=== PATIENT | female | born 1940 | race Caucasian/White ===

== ENCOUNTER 2016-04-21 15:48 | Inpatient (IN) ==
[2016-04-21 18:42] LABS: Basophils % 0.1 %; Eosinophils # 0.2 K/mcL (0.0-0.6); Eosinophils % 1.7 %; Hematocrit 32.2 % (35.3-44.9); Hemoglobin 10.6 g/dL (11.5-15.4); Immature Granulocytes % 0.8 % (0-4); Lymphocytes # 2.7 K/mcL (0.6-4.6); Lymphocytes % 19.9 %; Mean Corpuscular HGB Conc 32.9 g/dL (31.6-35.5); Mean Corpuscular Hemoglobin 31.5 pg (28.0-33.3); Mean Corpuscular Volume 95.5 fL (83.0-100.0); Mean Platelet Volume 10.6 fL (9.4-12.4); Monocytes # 1.4 K/mcL (0.0-1.3); Monocytes % 10.1 %; Neutrophils # 9.3 K/mcL (1.6-8.9); Platelet Count 232 K/mcL (140-400); Red Blood Count 3.37 M/mcL (3.82-4.97); Red Cell Distribution Width 13.8 % (11.5-14.5); Segmented Neutrophils % 67.4 %
[2016-04-21 18:56] LABS: Alanine Aminotransferase 13 Units/L (0-55); Albumin 2.5 g/dL (3.5-5.0); Albumin/Globulin Ratio 0.7 (1.1-2.2); Alkaline Phosphatase 62 Units/L (38-126); Aspartate Amino Transferase 16 Units/L (5-34); BUN/Creatinine Ratio 11 (6-26); Bilirubin,Total 0.6 mg/dL (0.2-1.2); Blood Urea Nitrogen 12 mg/dL (7-20); Calcium 9.3 mg/dL (8.6-10.8); Carbon Dioxide 19 mEq/L (19-29); Chloride 115 mEq/L (98-109); Globulin 3.8 g/dL (2.4-3.5); Glucose 137 mg/dL (70-99); Osmolality,Calculated 296 (280-300); Potassium 3.6 mEq/L (3.5-4.5); Sodium 142 mEq/L (136-145); Total Protein 6.3 g/dL (6.0-8.3); eGFR For African Americans > 60 (> 60); eGFR For Non-African Americans 51 (> 60)
--- NOTE | 2016-04-21 19:05 | Emergency Department Note ---
Disposition Clinical Impression: Acute exacerbation of chronic obstructive airways disease, Congestive heart failure, Dyspnea, Diabetes, Dyspnea on exertion, Frail elderly, CAD (coronary artery disease), Hypertension, Anemia Disposition: Admitted As Inpatient Referrals: Mindi Tafoya CNP [Primary Care Provider] - Forms: ED Satisfaction Letter General Adult HPI - General Chief complaint: ED Shortness of Breath/Dyspnea Stated complaint: NAUN Time Seen by Provider: 04/21/16 19:02 Source: patient Limitations: no limitations - History of Present Illness HPI Narrative: 75-year-old female with a history of diabetes, COPD, CHF, and coronary artery disease reports to the emergency Department complaining of progressive dyspnea. She reports she is so dyspneic on exertion she can walk about 10 or 20 feet. The patient has had a cough and some chills. There is no history of chest pain and coughing up blood or passing out no leg swelling or pain. She describes orthopnea and the need to sit straight up. There is no history of fall or injury no abdominal pain vomiting or diarrhea no confusion or any trouble moving the arms or legs independently. There is no history of headache neck stiffness or rash. No fevers reported. The patient is also concerned that she may have a urinary tract infection and wants us to check that. The patient does take diuretic medication. He has oxygen at home which she is really only worse at night. 2 L. She has been using her oxygen more during the day and has been progressively symptomatic. There is no history of previous PE or DVT. Onset (ago): day(s) Pain Scale: 0 - Related Data Home Medications Medication Instructions Recorded Confirmed Albuterol Sulfate [Proventil Hfa] 2 puff IH Q6HR PRN 01/10/16 01/10/16 Amlodipine Besylate 5 mg PO DAILY 01/10/16 01/10/16 Buspirone HCl [Buspar] 10 mg PO DAILY 01/10/16 01/10/16 Clopidogrel [Plavix] 75 mg PO DAILY 01/10/16 01/10/16 Famotidine [Heartburn Prevention] 20 mg PO TID 01/10/16 01/10/16 GlipiZIDE [Glipizide Xl] 5 mg PO PRN PRN 01/10/16 01/10/16 Metoclopramide [Reglan] 5 mg PO PRN PRN 01/10/16 01/10/16 Metoprolol [Lopressor] 25 mg PO BID 01/10/16 01/10/16 Pantoprazole Sodium [Protonix] 40 mg PO DAILY 01/10/16 01/10/16 Pravastatin Sodium [Pravachol] 40 mg PO HS 01/10/16 01/10/16 Sitagliptin Phosphate [Januvia] 50 mg PO DAILY 01/10/16 01/10/16 Tiotropium [Spiriva] 18 mcg IH DAILY 01/10/16 01/10/16 TraZODone 50 mg PO HS 01/10/16 01/10/16 Allergies Allergy/AdvReac Type Severity Reaction Status Date / Time Sulfa (Sulfonamide Allergy Vomiting Verified 01/10/16 21:11 Antibiotics) metronidazole [From Flagyl] AdvReac Vomiting Verified 01/10/16 21:11 All systems ED: reviewed and negative except as stated. Past Medical History - Past Medical History Medical history: Reports: CHF, COPD, diabetes, hyperlipidemia, hypertension, myocardial infarction Surgical history: Reports: other Psychiatric history: Reports: depression - Social History Smoking Status: Current every day smoker Smokeless Tobacco Status: No Alcohol use: Reports: none Drug use: Reports: none Physical Exam - General Limitations: no limitations General appearance: alert, in no apparent distress - Head Head exam: atraumatic, normocephalic - Eye Eye exam: Present: normal appearance, PERRL, EOMI - ENT ENT exam: normal exam, normal oropharynx, mucous membranes moist, TM's normal bilaterally, normal external ear exam - Neck Neck exam: Present: normal inspection, full ROM, trachea midline. Absent: tenderness - Chest Chest inspection: Present: symmetric chest wall rise. Absent: tenderness - Respiratory Respiratory exam: Present: prolonged expiratory phase, other (Course breath sounds particularly on the right with poor airflow throughout.). Absent: respiratory distress - Cardiovascular Cardiovascular exam: Present: regular rate, normal rhythm, normal heart sounds - Abdominal Exam Abdominal exam: Present: soft, Non-Tender. Absent: tenderness, distention, guarding, rebound, rigidity, pulsatile mass - Extremities Exam Extremities exam: Present: normal inspection, full ROM, normal capillary refill. Absent: tenderness, pedal edema, joint swelling, calf tenderness - Expanded Lower Extremity Exam Hip/Pelvis exam: Present: full ROM. Absent: tenderness Upper leg exam: Present: full ROM. Absent: tenderness Knee exam: Present: full ROM. Absent: tenderness Lower leg exam: Present: full ROM. Absent: tenderness, Homans' sign Neurovascular/Tendon exam: Absent: motor deficit, sensory deficit, tendon deficit - Back Exam Back exam: Present: normal inspection, full ROM. Absent: tenderness, CVA tenderness (R), CVA tenderness (L), vertebral tenderness - Neurological Exam Neurological exam: Present: alert, oriented X3, CN II-XII intact. Absent: motor sensory deficit - Psychiatric Psychiatric exam: Present: normal affect, normal mood - Skin Skin exam: Present: warm, dry, intact, normal color. Absent: rash, cyanosis, diaphoresis, erythema, pallor, mottled Course Vital Signs Temperature 98.3 F 04/21/16 16:12 Pulse Rate 96 04/21/16 16:12 Respiratory Rate 18 04/21/16 16:12 Blood Pressure 144/76 04/21/16 16:12 O2 Sat by Pulse Oximetry 96 04/21/16 16:12 Temperature 98.3 F 04/21/16 16:12 Pulse Rate 85 04/21/16 20:31 Respiratory Rate 18 04/21/16 20:31 Blood Pressure 156/58 04/21/16 20:31 O2 Sat by Pulse Oximetry 95 04/21/16 20:31 Oxygen Delivery Oxygen Delivery Nasal Cannula Medical Decision Making - [facility] Narrative Medical decision making narrative: The patient appears to have a COPD exacerbation. She has markedly dyspneic even on minimal exertion. She describes being able to ambulate 20 feet or so before becoming severely dyspneic. She does not usually require oxygen in the day and has had to wear oxygen over the last few days. The patient was given a DuoNeb in the ED and her peak flow was only 120. A second DuoNeb was given. Antibiotics and steroids also been ordered. The patient denies any chest pain. She does not appear to be in acute heart failure. Based on her multiple comorbidities including COPD CHF diabetes and CAD with what appears to be significant dyspnea on exertion and an extremely poor peak flow, it appears that she has failed outpatient therapy. I have consulted the hospitalist on- call - Lab Data Result diagrams: 04/21/16 18:20 04/21/16 18:20 Lab Results 04/21/16 04/21/16 04/21/16 Range/Units 18:20 18:20 20:00 WBC 13.7 H (4.3-11.1) K/mcL RBC 3.37 L (3.82-4.97) M/mcL Hgb 10.6 L (11.5-15.4) g/dL Hct 32.2 L (35.3-44.9) % MCV 95.5 (83.0-100.0) fL MCH 31.5 (28.0-33.3) pg MCHC 32.9 (31.6-35.5) g/dL RDW 13.8 (11.5-14.5) % Plt Count 232 (140-400) K/mcL MPV 10.6 (9.4-12.4) fL Immature Gran % 0.8 (0-4) % Seg Neutrophils % 67.4 % Lymphocytes % 19.9 % Monocytes % 10.1 % Eosinophils % 1.7 % Basophils % 0.1 % Neutrophils # 9.3 H (1.6-8.9) K/mcL Lymphocytes # 2.7 (0.6-4.6) K/mcL Monocytes # 1.4 H (0.0-1.3) K/mcL Eosinophils # 0.2 (0.0-0.6) K/mcL Basophils # 0.0 (0.0-0.2) K/mcL Sodium 142 (136-145) mEq/L Potassium 3.6 (3.5-4.5) mEq/L Chloride 115 H (98-109) mEq/L Carbon Dioxide 19 (19-29) mEq/L BUN 12 (7-20) mg/dL Creatinine 1.05 (0.57-1.11) mg/dL Est GFR ( Amer) > 60 (> 60) Est GFR (Non-Af Amer) 51 L (> 60) BUN/Creatinine Ratio 11 (6-26) Glucose 137 H (70-99) mg/dL Calculated Osmolality 296 (280-300) Lactic Acid (0.5-2.2) mmol/L Calcium 9.3 (8.6-10.8) mg/dL Total Bilirubin 0.6 (0.2-1.2) mg/dL AST 16 (5-34) Units/L ALT 13 (0-55) Units/L Alkaline Phosphatase 62 (38-126) Units/L Troponin I 0.01 (0-0.03) ng/mL C-Reactive Protein 101 H (Less than 5) mg/L B-Natriuretic Peptide (0-100) pg/mL Serum Total Protein 6.3 (6.0-8.3) g/dL Albumin 2.5 L (3.5-5.0) g/dL Globulin 3.8 H (2.4-3.5) g/dL Albumin/Globulin Ratio 0.7 L (1.1-2.2) Urine Color (Yellow) Urine Clarity (Clear) Urine pH (5.0-8.0) pH Units Ur Specific [place] (1.010-1.025) Urine Protein (Neg-Trace) mg/dL Urine Glucose (UA) (Normal) mg/dL Urine Ketones (Negative) mg/dL Urine Blood (Negative) Urine Nitrite (Negative) Urine Bilirubin (Negative) Urine Urobilinogen (Normal) mg/dL Ur Leukocyte Esterase (Negative) Urine Microscopic RBC (0-3) per hpf Urine Microscopic WBC (0-3) per hpf Ur Squamous Epith Cells (None-Few) per lpf Urine Bacteria (None-Few) per hpf Hyaline Casts (None-Few) per lpf Ur Culture Indicated? (NO) Specimen Rejected 04/21/16 04/21/16 04/21/16 Range/Units 20:00 20:00 20:35 WBC (4.3-11.1) K/mcL RBC (3.82-4.97) M/mcL Hgb (11.5-15.4) g/dL Hct (35.3-44.9) % MCV (83.0-100.0) fL MCH (28.0-33.3) pg MCHC (31.6-35.5) g/dL RDW (11.5-14.5) % Plt Count (140-400) K/mcL MPV (9.4-12.4) fL Immature Gran % (0-4) % Seg Neutrophils % % Lymphocytes % % Monocytes % % Eosinophils % % Basophils % % Neutrophils # (1.6-8.9) K/mcL Lymphocytes # (0.6-4.6) K/mcL Monocytes # (0.0-1.3) K/mcL Eosinophils # (0.0-0.6) K/mcL Basophils # (0.0-0.2) K/mcL Sodium (136-145) mEq/L Potassium (3.5-4.5) mEq/L Chloride (98-109) mEq/L Carbon Dioxide (19-29) mEq/L BUN (7-20) mg/dL Creatinine (0.57-1.11) mg/dL Est GFR ( Amer) (> 60) Est GFR (Non-Af Amer) (> 60) BUN/Creatinine Ratio (6-26) Glucose (70-99) mg/dL Calculated Osmolality (280-300) Lactic Acid 1.0 (0.5-2.2) mmol/L Calcium (8.6-10.8) mg/dL Total Bilirubin (0.2-1.2) mg/dL AST (5-34) Units/L ALT (0-55) Units/L Alkaline Phosphatase (38-126) Units/L Troponin I (0-0.03) ng/mL C-Reactive Protein (Less than 5) mg/L B-Natriuretic Peptide 135 H (0-100) pg/mL Serum Total Protein (6.0-8.3) g/dL Albumin (3.5-5.0) g/dL Globulin (2.4-3.5) g/dL Albumin/Globulin Ratio (1.1-2.2) Urine Color (Yellow) Urine Clarity (Clear) Urine pH (5.0-8.0) pH Units Ur Specific [place] (1.010-1.025) Urine Protein (Neg-Trace) mg/dL Urine Glucose (UA) (Normal) mg/dL Urine Ketones (Negative) mg/dL Urine Blood (Negative) Urine Nitrite (Negative) Urine Bilirubin (Negative) Urine Urobilinogen (Normal) mg/dL Ur Leukocyte Esterase (Negative) Urine Microscopic RBC (0-3) per hpf Urine Microscopic WBC (0-3) per hpf Ur Squamous Epith Cells (None-Few) per lpf Urine Bacteria (None-Few) per hpf Hyaline Casts (None-Few) per lpf Ur Culture Indicated? (NO) Specimen Rejected Hemolyzed 04/21/16 Range/Units 22:15 WBC (4.3-11.1) K/mcL RBC (3.82-4.97) M/mcL Hgb (11.5-15.4) g/dL Hct (35.3-44.9) % MCV (83.0-100.0) fL MCH (28.0-33.3) pg MCHC (31.6-35.5) g/dL RDW (11.5-14.5) % Plt Count (140-400) K/mcL MPV (9.4-12.4) fL Immature Gran % (0-4) % Seg Neutrophils % % Lymphocytes % % Monocytes % % Eosinophils % % Basophils % % Neutrophils # (1.6-8.9) K/mcL Lymphocytes # (0.6-4.6) K/mcL Monocytes # (0.0-1.3) K/mcL Eosinophils # (0.0-0.6) K/mcL Basophils # (0.0-0.2) K/mcL Sodium (136-145) mEq/L Potassium (3.5-4.5) mEq/L Chloride (98-109) mEq/L Carbon Dioxide (19-29) mEq/L BUN (7-20) mg/dL Creatinine (0.57-1.11) mg/dL Est GFR ( Amer) (> 60) Est GFR (Non-Af Amer) (> 60) BUN/Creatinine Ratio (6-26) Glucose (70-99) mg/dL Calculated Osmolality (280-300) Lactic Acid (0.5-2.2) mmol/L Calcium (8.6-10.8) mg/dL Total Bilirubin (0.2-1.2) mg/dL AST (5-34) Units/L ALT (0-55) Units/L Alkaline Phosphatase (38-126) Units/L Troponin I (0-0.03) ng/mL C-Reactive Protein (Less than 5) mg/L B-Natriuretic Peptide (0-100) pg/mL Serum Total Protein (6.0-8.3) g/dL Albumin (3.5-5.0) g/dL Globulin (2.4-3.5) g/dL Albumin/Globulin Ratio (1.1-2.2) Urine Color Yellow (Yellow) Urine Clarity Clear (Clear) Urine pH 5.5 (5.0-8.0) pH Units Ur Specific [place] 1.023 (1.010-1.025) Urine Protein >=300 H (Neg-Trace) mg/dL Urine Glucose (UA) Normal (Normal) mg/dL Urine Ketones Negative (Negative) mg/dL Urine Blood Negative (Negative) Urine Nitrite Negative (Negative) Urine Bilirubin Negative (Negative) Urine Urobilinogen Normal (Normal) mg/dL Ur Leukocyte Esterase Negative (Negative) Urine Microscopic RBC 5-15 H (0-3) per hpf Urine Microscopic WBC 3-5 H (0-3) per hpf Ur Squamous Epith Cells Many H (None-Few) per lpf Urine Bacteria None Seen (None-Few) per hpf Hyaline Casts None Seen (None-Few) per lpf Ur Culture Indicated? NO (NO) Specimen Rejected
[2016-04-21 20:34] LABS: C-Reactive Protein 101 mg/L (Less than 5)
[2016-04-21] MEDS ORDERED: methylPREDNISolone 125 MG/2 ML VIAL IVP ONE (21:43)
[2016-04-21] MEDS ORDERED: Ipratropium/Albuterol Neb 3 ML IH ONE ×2 (21:43→22:49)
[2016-04-21 22:22] LABS: Bilirubin,Urine Negative (Negative); Blood,Urine Negative (Negative); Clarity,Urine Clear (Clear); Color,Urine Yellow (Yellow); Glucose,Urine (UA) Normal (Normal); Ketones,Urine Negative (Negative); Leukocyte Esterase,Urine Negative (Negative); Nitrite,Urine Negative (Negative); PH,Urine 5.5 pH Units (5.0-8.0); Protein,Urine >=300 mg/dL (Neg-Trace); Specific Gravity,Urine 1.023 (1.010-1.025); Urobilinogen,Urine Normal (Normal)
[2016-04-21 22:26] LABS: Bacteria,Urine None Seen per hpf (None-Few); Hyaline Casts,Urine None Seen per lpf (None-Few); Squamous Epithelial Cell,Urine Many per lpf (None-Few)
[2016-04-21] MEDS ORDERED: Levofloxacin 750 MG/150 ML 750 MG/150 ML BAG IVPB ONE (22:49)
[2016-04-22] MEDS ORDERED: Naloxone 0.4 MG/ML INJ IVP PRN (00:18)
[2016-04-22] MEDS ORDERED: Ipratropium/Albuterol Neb 3 ML IH PRN (00:19)
[2016-04-22] MEDS ORDERED: *HR* Dextrose 50 % in Water (Syg) 50 ML SYRINGE IVP PRN (00:20)
[2016-04-22] MEDS ORDERED: Dextrose Gel 15 GM PO PRN ×2 (00:20)
[2016-04-22] MEDS ORDERED: D5% in Water 1,000 ML IV PRN (00:20)
[2016-04-22] MEDS ORDERED: Furosemide 20 MG/2 ML VIAL IVP ONE (00:36)
[2016-04-22] MEDS: Nicotine 21 MG PATCH.TD24 TD SCH ×2 (01:13→08:41)
[2016-04-22] MEDS: Famotidine 20 MG TABLET PO SCH ×4 (01:14→17:48)
[2016-04-22] MEDS: Insulin LISPRO 300 UNITS/3 ML VIAL SQ SCH ×5 (01:14→21:45)
[2016-04-22] MEDS: traZODone 50 MG TABLET PO PRN ×2 (01:14→21:50)
--- NOTE | 2016-04-22 02:23 | Internal Med History&Physical ---
Date of Encounter: 04/21/16 Time of Encounter: 22:30 Assessment and Plan (1) Acute exacerbation of CHF (congestive heart failure) Current visit: Yes Status: Acute -Clinical presentation consistent with CHF decompensation -2D echo from January 2017: LVEF 55% with LV diastolic dysfunction -One dose Lasix 20mg IV given -Will continue diuretic therapy (lasix 20mg IVq12h), titrate to PO therapy as patient clinically improves -closely monitor electrolytes and replace as needed -monitor daily weight, I/Os -strict fluid restriction to 1.5L/day -if clinically worsens, consider cardiology eval Qualifiers: Congestive heart failure type: diastolic Qualified Code(s): I50.33 - Acute on chronic diastolic (congestive) heart failure (2) COPD (chronic obstructive pulmonary disease) Current visit: Yes Status: Chronic -History of COPD and does not appear to be in acute exacerbation -continue bronchodilators -monitor off systemic steroids at this time -continue O2 supplementation as needed -monitor O2 sat, O2 sat goal: 89-92% Qualifiers: COPD type: unspecified COPD Qualified Code(s): J44.9 - Chronic obstructive pulmonary disease, unspecified (3) Hypertension Current visit: Yes Status: Chronic BP within acceptable range continue to monitor continue home medications Qualifiers: Hypertension type: essential hypertension Qualified Code(s): I10 - Essential (primary) hypertension (4) Diabetes mellitus Current visit: Yes Status: Chronic -hold oral antihyperglycemic agents at this time -continue sliding scale correctional insulin algorithm as needed -continue to monitor fingerstick and blood glucose Qualifiers: Diabetes mellitus type: type 2 Diabetes mellitus complication status: with unspecified complications Diabetes mellitus dedicated intermodal truck driver insulin use: unspecified intermediate insulin use status Qualified Code(s): E11.8 - Type 2 diabetes mellitus with unspecified complications (5) CAD (coronary artery disease) Current visit: Yes Status: Chronic -No signs of angina present at this time -continue home medications Qualifiers: Coronary Disease-Associated Artery/Lesion type: unspecified vessel or lesion type [place] vs. transplanted heart: [place] heart Associated angina: with unspecified angina Qualified Code(s): I25.119 - Atherosclerotic heart disease of [place] coronary artery with unspecified angina pectoris (6) DVT prophylaxis Current visit: Yes Status: Acute Heparin SQ (7) Cigarette smoker Current visit: Yes Status: Acute Smoking cessation counseling provided Patient not ready to completely quit but states she is trying to cut down Nicotine replacement therapy provided Internal Medicine - H&P: HPI Chief complaint: shortness of breath Admitted From: Home Plans for Post Hospital Care: Home History of present illness: Ms. [place] is a 75 year old female with PMH of Hypertension, COPD, CAD, DM, CHF who presents to the ER for evaluation of shortness of breath. Patient states she has had exertional dyspnea for a month, and was admitted in January for the same complains, at that time was diagnosed with CHF. She was started on a diuretic therapy. After further questioning, patient states that her dyspnea upon exertion had improved but she has noticed worsening symptoms for the last one month. She states one month ago her sponge buffer took her off the diuretic therapy and ever since then her symptoms have worsened. She also has underlying COPD-on home oxygen and is an everyday smoker. In the ER, patient was treated for COPD exacerbation with IV steroids, abx, and nebulizer treatments. During my evaluation, patient appears to have clinical signs of CHF decompensation and no active wheezing. She is breathing comfortably at rest and reports of palpatations after receiving the nebulizer treatments. Denies any headache, chest pain, abd pain, n/v, fever, or chills at this time. Social Hx: everyday smoker Past Med Surg Social Fam HX - Past Medical History Medical history: CHF, COPD, diabetes, hyperlipidemia, hypertension, myocardial infarction Psychiatric history: depression - Past Surgical History Surgical History: angioplasty/stent, other - Social History Smoking Status: Current every day smoker Packs per day: 0.5 Smokeless Tobacco Status: No Alcohol use: none Drug use: none - Family History Mother Hx Family Cardiac Disorders: Yes (pacer) Hx Family Cancer: Yes (pancreas) Father Hx Family Cardiac Disorders: Yes Hx Family Respiratory Disorders: Yes Internal Medicine - H&P: Meds Albuterol Sulfate [Proventil Hfa] 2 puff IH Q6HR PRN 01/10/16 [History] Amlodipine Besylate 5 mg PO DAILY 01/10/16 [History] Buspirone HCl [Buspar] 10 mg PO DAILY 01/10/16 [History] Clopidogrel [Plavix] 75 mg PO DAILY 01/10/16 [History] Famotidine [Heartburn Prevention] 20 mg PO TID 01/10/16 [History] GlipiZIDE [Glipizide Xl] 5 mg PO PRN PRN 01/10/16 [History] Metoclopramide [Reglan] 5 mg PO PRN PRN 01/10/16 [History] Metoprolol [Lopressor] 25 mg PO BID 01/10/16 [History] Pantoprazole Sodium [Protonix] 40 mg PO DAILY 01/10/16 [History] Pravastatin Sodium [Pravachol] 40 mg PO HS 01/10/16 [History] Sitagliptin Phosphate [Januvia] 50 mg PO DAILY 01/10/16 [History] Tiotropium [Spiriva] 18 mcg IH DAILY 01/10/16 [History] TraZODone 50 mg PO HS 01/10/16 [History] Allergies Sulfa (Sulfonamide Antibiotics) Allergy (Verified 01/10/16 21:11) Vomiting metronidazole [From Flagyl] Adverse Reaction (Verified 01/10/16 21:11) Vomiting All Systems PM: A 10-system review of systems was performed and is negative for pertinent findings except as documented above in the HPI. - Constitutional Constitutional: as per HPI - Constitutional Vitals: Temp Pulse Resp BP Pulse Ox 98.2 F 105 22 112/63 96 04/22/16 00:09 04/22/16 00:09 04/22/16 00:09 04/22/16 00:09 04/22/16 00:34 General appearance: Present: cooperative, A&O X 3, pleasant, no acute distress, answers questions appropriately - Head Head exam: Present: atraumatic, normocephalic - Eye Eye exam: Present: normal appearance, conjuntiva pink, sclera anicteric - Respiratory Respiratory exam: Absent: respiratory distress, wheezes (bibasilar crackles) - Cardiovascular Cardiovascular exam: Present: JVD, RRR, +S1, +S2 - GI/Abdominal GI/Abdominal exam: Present: normal bowel sounds, soft. Absent: distended, tenderness - Extremities Exam Extremities exam: Present: pedal edema (mild bilateral lower extremity edema), warm, radial pulses palpable and symetrical. Absent: calf tenderness - Neurological Exam Neurological exam: Present: alert, oriented X3, no focal deficits - Psychiatric Psychiatric exam: Present: normal affect, normal mood Internal Med - H&P Results - Labs CBC & Chem 7: 04/21/16 18:20 04/21/16 18:20
[2016-04-22] MEDS ORDERED: Ipratropium/Albuterol Neb 3 ML IH SCH (04:00)
[2016-04-22 04:53] LABS: Hematocrit 28.5 % (35.3-44.9); Hemoglobin 9.5 g/dL (11.5-15.4); Immature Granulocytes % 0.8 % (0-4); Lymphocytes # 0.5 K/mcL (0.6-4.6); Lymphocytes % 5.5 %; Mean Corpuscular HGB Conc 33.3 g/dL (31.6-35.5); Mean Corpuscular Hemoglobin 31.7 pg (28.0-33.3); Mean Platelet Volume 10.5 fL (9.4-12.4); Monocytes # 0.1 K/mcL (0.0-1.3); Monocytes % 0.9 %; Neutrophils # 8.4 K/mcL (1.6-8.9); Platelet Count 202 K/mcL (140-400); Red Cell Distribution Width 13.8 % (11.5-14.5); Segmented Neutrophils % 92.8 %
[2016-04-22 05:14] LABS: BUN/Creatinine Ratio 13 (6-26); Blood Urea Nitrogen 13 mg/dL (7-20); Calcium 8.7 mg/dL (8.6-10.8); Carbon Dioxide 19 mEq/L (19-29); Chloride 113 mEq/L (98-109); Glucose 183 mg/dL (70-99); Magnesium 1.9 mg/dL (1.6-2.6); Osmolality,Calculated 297 (280-300); Phosphorous 2.4 mg/dL (2.3-4.7); Potassium 3.8 mEq/L (3.5-4.5); Sodium 141 mEq/L (136-145); eGFR For African Americans > 60 (> 60); eGFR For Non-African Americans 52 (> 60)
[2016-04-22] MEDS: *HR* Heparin 5,000 UNIT/ML VIAL SQ SCH ×2 (06:29→17:49)
[2016-04-22] MEDS ORDERED: Furosemide 20 MG/2 ML VIAL IVP SCH (08:00)
[2016-04-22] MEDS: amLODIPine 5 MG TABLET PO SCH (08:44)
[2016-04-22] MEDS ORDERED: Sennosides/Docusate Sodium TABLET PO ONE (11:41)
[2016-04-22] MEDS: Tiotropium 18 MCG inhalation IH SCH (11:47)
[2016-04-22] MEDS: Budesonide/Formoterol 80/4.5 MDI IH SCH ×2 (11:48→20:39)
--- NOTE | 2016-04-22 15:56 | Event Note ---
Date of Encounter: 04/22/16 Time of Encounter: 15:52 jimbo admitted for PADILLA. has h/o CHF> however last ECHo On 11/19 showed LVEF of 55% with mild DD> CXR shows no cardiomegaly or pulmonary edema. On exam she has no crepitations or lateral lower leg swelling. She was taken off Lasix by Dr. Simmons as outpatient given no signs of volume overload. She was restarted on Lasix last night, however she has no signs of volume overload on exam and appears to be dry, will DC Lasix at this time. CT chest was done which shows evidence of bronchopneumonia, does not show any evidence of pulmonary edema or pleural effusion. At this time we will treat bronchopneumonia with IV levofloxacin, will send sputum for Gram stain and culture, we will add Symbicort and spiriva and continue prn bronchodilators for COPD> will also do 6MWT at the time of dc.
[2016-04-22] MEDS: Levofloxacin 500 MG/100 ML 500 MG/100 ML BAG IVPB SCH (17:44)
--- NOTE | 2016-04-22 18:25 | Electrocardiograph Report ---
[facility] Test Date: 2016-04-21 Pat Name: KRISTEN ERVIN Department: 102 Room: 3B49 Gender: F Rock Mason: MADONNA : 1940 Requested By: Claudine Rubio Order Number: [id number] Reading MD: Valerie Castro Measurements Intervals [place] Rate: 89 P: 87 WI: 154 QRS: 26 QRSD: 117 T: 50 QT: 375 QTc: 422 Interpretive Statements SINUS RHYTHM WITH SINUS ARRHYTHMIA SEPTAL MYOCARDIAL INFARCTION [40+ ms Q WAVE IN V1/V2], OF INDETERMINATE AGE Electronically Signed On 04-22-16 18:23:47 EST by Valerie Castro
[2016-04-22] MEDS: Ondansetron 4 MG/2 ML VIAL IVP PRN (20:11)
[2016-04-23] MEDS: Famotidine 20 MG TABLET PO SCH ×3 (06:32→17:02)
[2016-04-23] MEDS: *HR* Heparin 5,000 UNIT/ML VIAL SQ SCH ×2 (06:33→17:02)
[2016-04-23 08:33] LABS: Basophils % 0.1 %; Hematocrit 26.9 % (35.3-44.9); Hemoglobin 8.9 g/dL (11.5-15.4); Immature Granulocytes % 1.2 % (0-4); Mean Corpuscular HGB Conc 33.1 g/dL (31.6-35.5); Mean Corpuscular Hemoglobin 31.9 pg (28.0-33.3); Mean Corpuscular Volume 96.4 fL (83.0-100.0); Mean Platelet Volume 10.8 fL (9.4-12.4); Monocytes % 6.7 %; Platelet Count 197 K/mcL (140-400); Red Blood Count 2.79 M/mcL (3.82-4.97); Red Cell Distribution Width 13.8 % (11.5-14.5)
[2016-04-23 08:34] LABS: Neutrophils # 11.2 K/mcL (1.6-8.9)
[2016-04-23] MEDS: Ondansetron 4 MG/2 ML VIAL IVP PRN (08:41)
[2016-04-23] MEDS: amLODIPine 5 MG TABLET PO SCH (08:44)
[2016-04-23] MEDS: Nicotine 21 MG PATCH.TD24 TD SCH (08:44)
[2016-04-23 08:47] LABS: BUN/Creatinine Ratio 17 (6-26); Blood Urea Nitrogen 17 mg/dL (7-20); Calcium 9.1 mg/dL (8.6-10.8); Carbon Dioxide 21 mEq/L (19-29); Chloride 112 mEq/L (98-109); Glucose 146 mg/dL (70-99); Osmolality,Calculated 300 (280-300); Sodium 143 mEq/L (136-145); eGFR For African Americans > 60 (> 60); eGFR For Non-African Americans 53 (> 60)
[2016-04-23] MEDS: Insulin LISPRO 300 UNITS/3 ML VIAL SQ SCH ×4 (08:48→20:27)
[2016-04-23] MEDS: Budesonide/Formoterol 80/4.5 MDI IH SCH ×2 (10:25→20:16)
[2016-04-23] MEDS: Tiotropium 18 MCG inhalation IH SCH (10:25)
[2016-04-23] MEDS ORDERED: MOM Conc 10 ML UD.LIQ PO ONE (13:02)
--- NOTE | 2016-04-23 14:43 | Internal Med Progress Note ---
Date of Encounter: 04/23/16 Time of Encounter: 14:41 - Assessment and plan (1) Bronchopneumonia Current Visit: Yes Status: Acute Assessment and plan: bronchopnuemonia on juan CT chest will treat with IV levofloxacin, denies any symptoms other than sob. remains afebrile and no leucocytosis. (2) CAD (coronary artery disease) Current Visit: Yes Status: Acute Assessment and plan: stable. continue home meds Qualifiers: Coronary Disease-Associated Artery/Lesion type: [place] artery [place] vs. transplanted heart: [place] heart Associated angina: without angina Qualified Code(s): I25.10 - Atherosclerotic heart disease of [place] coronary artery without angina pectoris (3) Cigarette smoker Current Visit: Yes Status: Chronic (4) Congestive heart failure Current Visit: Yes Status: Acute Assessment and plan: not in volume overload. stopped the lasix. last ECHO on 01/19 shows EF of 55% with mild LVDD. Qualifiers: Congestive heart failure type: diastolic Congestive heart failure chronicity: chronic Qualified Code(s): I50.32 - Chronic diastolic (congestive ) heart failure (5) COPD (chronic obstructive pulmonary disease) Current Visit: Yes Status: Chronic Assessment and plan: have added symbicort and spiriva. no wheezing on ecxam improving clinically will need 6MWT before dc. continue oxygen to maintain sats>90% Qualifiers: COPD type: unspecified COPD Qualified Code(s): J44.9 - Chronic obstructive pulmonary disease, unspecified - Time Spent With Patient 25 - 35 minutes - Subjective Interval history: seen at the bedside, c/o nausea in the morning, reports that she feels better now than yest, however still sob on exertion. denies any chest pain or cough - Constitutional Vitals: Temp Pulse Resp BP Pulse Ox 98.1 F 69 15 134/70 97 04/23/16 11:05 04/23/16 11:05 04/23/16 11:05 04/23/16 11:05 04/23/16 11:05 General appearance: Present: cooperative, A&O X 3, pleasant, no acute distress, answers questions appropriately Exam: neck- supple chest- b/l clear, no added sounds CVS-s1 and s2, no mr/g abd-soft, non tender, bs are present ext-no edema Internal Medicine: Result - Labs CBC & Chem 7: 04/23/16 08:15 04/23/16 08:15 Labs: Short CBC 04/23/16 Range/Units 08:15 WBC 14.4 H D (4.3-11.1) K/mcL Hgb 8.9 L (11.5-15.4) g/dL Hct 26.9 L (35.3-44.9) % Plt Count 197 (140-400) K/mcL Neutrophils # 11.2 H (1.6-8.9) K/mcL BMP 04/23/16 08:15 Sodium 143 Potassium 4.0 Chloride 112 H Carbon Dioxide 21 BUN 17 Creatinine 1.01 Glucose 146 H Calcium 9.1 Consult Discharge Plan - Plan Referrals: Mindi Tafoya, HYDROGENATION STILL OPERATOR [Primary Care Provider] -
[2016-04-23] MEDS ORDERED: MOM Conc 10 ML UD.LIQ PO PRN (17:21)
[2016-04-23] MEDS: Levofloxacin 500 MG/100 ML 500 MG/100 ML BAG IVPB SCH (18:45)
[2016-04-23] MEDS: traZODone 50 MG TABLET PO PRN (20:10)
[2016-04-24 05:23] LABS: Basophils % 0.1 %; Eosinophils % 0.3 %; Hematocrit 28.3 % (35.3-44.9); Hemoglobin 9.3 g/dL (11.5-15.4); Immature Granulocytes % 0.5 % (0-4); Lymphocytes # 3.5 K/mcL (0.6-4.6); Lymphocytes % 33.6 %; Mean Corpuscular HGB Conc 32.9 g/dL (31.6-35.5); Mean Corpuscular Hemoglobin 32.2 pg (28.0-33.3); Mean Corpuscular Volume 97.9 fL (83.0-100.0); Mean Platelet Volume 11.1 fL (9.4-12.4); Monocytes # 0.8 K/mcL (0.0-1.3); Monocytes % 7.4 %; Platelet Count 202 K/mcL (140-400); Red Blood Count 2.89 M/mcL (3.82-4.97); Red Cell Distribution Width 13.6 % (11.5-14.5); Segmented Neutrophils % 58.1 %
[2016-04-24 05:41] LABS: BUN/Creatinine Ratio 23 (6-26); Blood Urea Nitrogen 19 mg/dL (7-20); Calcium 9.4 mg/dL (8.6-10.8); Carbon Dioxide 26 mEq/L (19-29); Chloride 109 mEq/L (98-109); Glucose 109 mg/dL (70-99); Osmolality,Calculated 299 (280-300); Potassium 4.2 mEq/L (3.5-4.5); Sodium 143 mEq/L (136-145); eGFR For African Americans > 60 (> 60); eGFR For Non-African Americans > 60 (> 60)
[2016-04-24] MEDS: *HR* Heparin 5,000 UNIT/ML VIAL SQ SCH (05:45)
[2016-04-24] MEDS: Tiotropium 18 MCG inhalation IH SCH (08:18)
[2016-04-24] MEDS: Budesonide/Formoterol 80/4.5 MDI IH SCH (08:18)
[2016-04-24] MEDS: amLODIPine 5 MG TABLET PO SCH (09:01)
[2016-04-24] MEDS: Famotidine 20 MG TABLET PO SCH ×2 (09:01→12:23)
[2016-04-24] MEDS: Nicotine 21 MG PATCH.TD24 TD SCH (09:02)
[2016-04-24] MEDS ORDERED: Sennosides 8.6 MG TABLET PO PRN (10:24)
[2016-04-24 11:45] VITALS: BP 139/62
[2016-04-24] MEDS: Insulin LISPRO 300 UNITS/3 ML VIAL SQ SCH ×2 (12:19→12:23)
--- NOTE | 2016-04-24 13:06 | Discharge Summary ---
Date of Encounter: 04/24/16 Time of Encounter: 13:03 - Discharge Diagnosis (1) Bronchopneumonia Priority: Primary Status: Acute (2) CAD (coronary artery disease) Priority: Secondary Status: Acute Qualifiers: Coronary Disease-Associated Artery/Lesion type: [place] artery [place] vs. transplanted heart: [place] heart Associated angina: without angina Qualified Code(s): I25.10 - Atherosclerotic heart disease of [place] coronary artery without angina pectoris (3) Cigarette smoker Priority: Secondary Status: Chronic (4) Congestive heart failure Priority: Secondary Status: Acute Qualifiers: Congestive heart failure type: diastolic Congestive heart failure chronicity: chronic Qualified Code(s): I50.32 - Chronic diastolic (congestive ) heart failure (5) COPD (chronic obstructive pulmonary disease) Priority: Secondary Status: Chronic Qualifiers: COPD type: unspecified COPD Qualified Code(s): J44.9 - Chronic obstructive pulmonary disease, unspecified - Discharge Medications Prescriptions: Fluticasone/Salmeterol [Advair 100-50 Diskus] 1 each IH BID #60 blst.w.dev Levofloxacin 500 mg PO DAILY #4 tablet Sennosides [Senna] 8.6 mg PO PRN PRN #30 tablet PRN Reason: Constipation Tiotropium [Spiriva] 18 mcg IH DAILYR #30 inh Home Medications: Albuterol Sulfate [Proventil Hfa] 2 puff IH Q6HR PRN 01/10/16 [History] Amlodipine Besylate 5 mg PO DAILY 01/10/16 [History] Buspirone HCl [Buspar] 10 mg PO DAILY 01/10/16 [History] Clopidogrel [Plavix] 75 mg PO DAILY 01/10/16 [History] Famotidine [Heartburn Prevention] 20 mg PO TID 01/10/16 [History] GlipiZIDE [Glipizide Xl] 5 mg PO DAILY PRN 01/10/16 [History] Metoprolol [Lopressor] 25 mg PO DAILY 01/10/16 [History] Pantoprazole Sodium [Protonix] 40 mg PO DAILY 01/10/16 [History] Pravastatin Sodium [Pravachol] 40 mg PO HS 01/10/16 [History] Sitagliptin Phosphate [Januvia] 50 mg PO DAILY 01/10/16 [History] Tiotropium [Spiriva] 18 mcg IH DAILY 01/10/16 [History] TraZODone 50 mg PO HS 01/10/16 [History] Acetaminophen [Tylenol] 1,000 mg PO Q6HR PRN 04/22/16 [History] Acetaminophen/Diphenhydramine [Acetaminophen Pm Caplet] 2 each PO HS 04/22/16 [ History] Albuterol Neb [Proventil Neb] 2.5 mg IH TID 04/22/16 [History] Calcium Carbonate [Calcium] 1,000 mg PO DAILY 04/22/16 [History] Cyanocobalamin (Vitamin B-12) [Vitamin B12] 1,000 mcg PO DAILY 04/22/16 [History ] Multivit-Min/Iron/Folic/Lutein [Centrum Silver Women Tablet] 1 each PO DAILY [History] [place]-3/Dha/Epa/Fish Oil [Fish Oil 1,000 mg Softgel] 1,000 mg PO DAILY 04/22/16 [History] Fluticasone/Salmeterol [Advair 100-50 Diskus] 1 each IH BID #60 blst.w.dev 04/24 [Rx] Levofloxacin 500 mg PO DAILY #4 tablet 04/24/16 [Rx] Sennosides [Senna] 8.6 mg PO PRN PRN #30 tablet 04/24/16 [Rx] Tiotropium [Spiriva] 18 mcg IH DAILYR #30 inh 04/24/16 [Rx] Allergies/Adverse Reactions: Allergies Sulfa (Sulfonamide Antibiotics) Allergy (Verified 01/10/16 21:11) Vomiting metronidazole [From Flagyl] Adverse Reaction (Verified 01/10/16 21:11) Vomiting Date of admission: 04/23/16 15:04 Primary care physician: Mindi Tafoya CNP Discharging clinician: Rafa Santamaria Anticipated date of discharge: 04/24/16 - Patient Status Disposition: Home, Self-Care Condition: Fair Functional capacity at discharge: independent ambulation Overall status at discharge: patient is back to baseline - Discharge Instructions Instructions: Heart Failure (DC), Diabetes Mellitus Type 2 in Adults (DC), Chronic Obstructive Pulmonary Disease (DC), Anemia (GEN) Follow Up With: Mindi Tafoya CNP [Primary Care Provider] - 05/01/16 10:30 am Forms: Work/School Release - Diet and Activity Activity: resume usual activities as tolerated Diet: advance to your usual diet Interval History: Ms. [place] is a 75 year old female with PMH of Hypertension, COPD, CAD, DM, CHF who presents to the ER for evaluation of shortness of breath. Patient states she has had exertional dyspnea for a month, and was admitted in January for the same complains, at that time was diagnosed with CHF. She was started on a diuretic therapy. After further questioning, patient states that her dyspnea upon exertion had improved but she has noticed worsening symptoms for the last one month. She states one month ago her farm equipment technician took her off the diuretic therapy when she was found to be very dry and has no swelling. She also has underlying COPD-on home oxygen and is an everyday smoker. In the ER , patient was treated for COPD exacerbation with IV steroids, abx, and nebulizer treatments. Hospital course: She was admitted for further evaluation of dyspnea on exertion. Chest CT was done which showed right lower zone bronchopneumonia, no signs of pulmonary edema or pleural effusion, also showed emphysema. She remained hemodynamically stable, afebrile and does not complain of cough. She does not have leukocytosis. However given persistent dyspnea on exertion and relatively normal echo done on January with no cardiomegaly on the chest x-ray, patient was treated for bronchopneumonia with a course of levofloxacin. This is less likely CHF exacebation, and she appears relatively dry, hence lasix was not continued. She improved clinically with IV antibiotics, we also added spiriva and Advair for her COPD. she is [facility] in stable condition today. Time spent discussing smoking cessation with patient: more than 10 minutes - Time Spent with Patient Total time spent providing and/or coordinating discharge services: Greater than 30 minutes - Constitutional Vitals: Temp Pulse Resp BP Pulse Ox 98.0 F 83 16 139/62 96 04/24/16 11:44 04/24/16 11:44 04/24/16 11:44 04/24/16 11:44 04/24/16 11:44 General appearance: Present: cooperative, A&O X 3, pleasant, no acute distress, answers questions appropriately Exam: General appearance: Present: cooperative, A&O X 3, pleasant, no acute distress, answers questions appropriately - Head Head exam: Present: atraumatic, normocephalic - Eye Eye exam: Present: normal appearance, conjuntiva pink, sclera anicteric - Respiratory Respiratory exam:b/l clear, no wheezing or creptns, Absent: respiratory distress, wheezes (bibasilar crackles) - Cardiovascular Cardiovascular exam: Present: JVD, RRR, +S1, +S2 - GI/Abdominal GI/Abdominal exam: Present: normal bowel sounds, soft. Absent: distended, tenderness - Extremities Exam Extremities exam: Present: no edema warm, radial pulses palpable and symetrical. Absent: calf tenderness - Neurological Exam Neurological exam: Present: alert, oriented X3, no focal deficits - Psychiatric Psychiatric exam: Present: normal affect, normal mood
== END 2016-04-24 14:57 | disposition home or self-care (01) | DRG 190 ==
LOC: 3BNU 15:48 → EMEROO 15:48 → 3BNU 23:55 → SUATTDRO 04-23 15:04
PROVIDERS: ADMIT Family Medicine; ATTEND Internal Medicine Endocrinology, Diabetes & Metabolism

== ENCOUNTER 2019-03-17 00:41 | Inpatient (IN) ==
[2019-03-17] MEDS ORDERED: Naloxone 0.4 MG/ML INJ IVP PRN (07:42)
[2019-03-17] MEDS ORDERED: Dextrose Gel 15 GM/37.5 ML TUBE PO PRN ×2 (08:50)
[2019-03-17] MEDS ORDERED: *HR* Dextrose 50 % in Water (Syg) 50 ML SYRINGE IVP PRN (08:50)
[2019-03-17] MEDS ORDERED: D5% in Water 1,000 ML IVC PRN (08:50)
[2019-03-17 09:02] LABS: Calcium 10.2 mg/dL (8.6-10.3); Potassium 4.3 mEq/L (3.5-5.1)
[2019-03-17] MEDS ORDERED: Furosemide 20 MG TABLET PO PRN (09:05)
[2019-03-17] MEDS: Pantoprazole 40 MG VIAL IVP SCH (10:53)
[2019-03-17] MEDS: Albuterol 2.5 MG/3 ML NEBULIZER IH SCH ×2 (11:50→15:57)
[2019-03-17] MEDS: Insulin LISPRO 300 UNITS/3 ML VIAL SQ SCH ×2 (13:12→18:30)
[2019-03-17] MEDS: Sucralfate 1 GM TABLET PO SCH ×3 (13:30→20:33)
[2019-03-17] MEDS: Acetaminophen 325 MG TABLET PO PRN (13:30)
[2019-03-17 13:44] LABS: Basophils % 0.2 %; Eosinophils # 0.3 K/mcL (0.0-0.6); Eosinophils % 2.8 %; Hematocrit 28.6 % (35.3-44.9); Hemoglobin 9.8 g/dL (11.5-15.4); Immature Granulocytes % 0.3 % (0-4); Lymphocytes % 21.8 %; Mean Corpuscular HGB Conc 34.3 g/dL (31.6-35.5); Mean Corpuscular Hemoglobin 34.1 pg (28.0-33.3); Mean Corpuscular Volume 99.7 fL (83.0-100.0); Monocytes # 0.9 K/mcL (0.0-1.3); Monocytes % 9.5 %; Neutrophils # 6.1 K/mcL (1.6-8.9); Platelet Count 250 K/mcL (140-400); Red Blood Count 2.87 M/mcL (3.82-4.97); Red Cell Distribution Width 11.9 % (11.5-14.5); Segmented Neutrophils % 65.4 %; White Blood Count 9.3 K/mcL (4.3-11.1)
[2019-03-17] MEDS: traZODone 50 MG TABLET PO SCH (20:34)
[2019-03-18] MEDS: Albuterol 2.5 MG/3 ML NEBULIZER IH SCH ×3 (03:56→16:22)
[2019-03-18] MEDS ORDERED: Regadenoson 0.4 MG/5 ML SYRINGE IVP ONE (06:22)
[2019-03-18] MEDS: Tiotropium 18 MCG inhalation IH SCH (09:18)
[2019-03-18] MEDS: Insulin LISPRO 300 UNITS/3 ML VIAL SQ SCH ×3 (09:44→16:01)
[2019-03-18] MEDS: Sucralfate 1 GM TABLET PO SCH ×4 (09:44→22:17)
[2019-03-18] MEDS: amLODIPine 5 MG TABLET PO SCH (10:35)
[2019-03-18] MEDS: Pantoprazole 40 MG VIAL IVP SCH (10:35)
[2019-03-18] MEDS: Multivit/Ca/Min/Fe/FA 1 TAB TABLET PO SCH (10:35)
[2019-03-18] MEDS: Cyanocobalamin (B-12) 1,000 MCG TABLET PO SCH (10:35)
[2019-03-18 11:10] LABS: Prothrombin Time 10.9 Seconds (9.4-12.1)
[2019-03-18 11:11] LABS: Activated Partial Thrombo Time 28.7 Seconds (26.0-36.0)
[2019-03-18] MEDS ORDERED: Isovue-370 500 ML BOTTLE IVP ONE (14:17)
[2019-03-18] MEDS ORDERED: Famotidine 20 MG TABLET PO SCH (15:00)
[2019-03-18] MEDS: Nicotine 21 MG PATCH.TD24 TD SCH (15:54)
[2019-03-18] MEDS: traZODone 50 MG TABLET PO SCH (19:56)
[2019-03-18] MEDS: Famotidine 20 MG TABLET PO SCH (19:56)
[2019-03-18] MEDS ORDERED: *HR* LORazepam 2 MG/ML VIAL IVP ONE (21:41)
[2019-03-18] MEDS ORDERED: *HR* LORazepam 2 MG/ML VIAL ONE (21:43)
[2019-03-19] MEDS: Acetaminophen 325 MG TABLET PO PRN (00:45)
[2019-03-19] MEDS: Albuterol 2.5 MG/3 ML NEBULIZER IH SCH ×2 (01:02→09:30)
[2019-03-19 02:33] LABS: Mean Corpuscular HGB Conc 32.4 g/dL (31.6-35.5); Mean Corpuscular Hemoglobin 34.2 pg (28.0-33.3); Mean Corpuscular Volume 105.5 fL (83.0-100.0); Platelet Count 189 K/mcL (140-400); Red Blood Count 2.37 M/mcL (3.82-4.97); Red Cell Distribution Width 11.8 % (11.5-14.5); White Blood Count 9.2 K/mcL (4.3-11.1)
[2019-03-19 02:34] LABS: Hemoglobin 8.1 g/dL (11.5-15.4)
[2019-03-19 02:52] LABS: BUN/Creatinine Ratio 21 (6-26); Blood Urea Nitrogen 29 mg/dL (8-23); Calcium 9.2 mg/dL (8.6-10.3); Carbon Dioxide 23 mEq/L (23-29); Chloride 104 mEq/L (98-107); Glucose 104 mg/dL (70-105); Magnesium 1.8 mg/dL (1.6-2.6); Osmolality,Calculated 288 (280-300); Potassium 4.2 mEq/L (3.5-5.1); Sodium 136 mEq/L (136-145); eGFR For African Americans 45 (> 60); eGFR For Non-African Americans 37 (> 60)
[2019-03-19 02:54] LABS: Troponin I < 0.03 ng/mL (< 0.04)
[2019-03-19] MEDS ORDERED: *HR* LORazepam 2 MG/ML VIAL IVP ONE (08:16)
[2019-03-19] MEDS: Insulin LISPRO 300 UNITS/3 ML VIAL SQ SCH ×2 (09:22→12:06)
[2019-03-19] MEDS: Sucralfate 1 GM TABLET PO SCH ×2 (09:22→12:06)
[2019-03-19] MEDS: Famotidine 20 MG TABLET PO SCH (09:23)
[2019-03-19] MEDS: amLODIPine 5 MG TABLET PO SCH (09:23)
[2019-03-19] MEDS: Multivit/Ca/Min/Fe/FA 1 TAB TABLET PO SCH (09:23)
[2019-03-19] MEDS: Cyanocobalamin (B-12) 1,000 MCG TABLET PO SCH (09:24)
[2019-03-19] MEDS: Tiotropium 18 MCG inhalation IH SCH (09:31)
[2019-03-19] MEDS ORDERED: diazePAM 5 MG TABLET PO ONE (09:36)
[2019-03-19] MEDS: Pantoprazole 40 MG VIAL IVP SCH ×2 (09:40→12:15)
[2019-03-19 11:31] VITALS: BP 140/78
[2019-03-19] MEDS: Nicotine 21 MG PATCH.TD24 TD SCH (12:06)
== END 2019-03-19 16:54 | disposition home or self-care (01) | DRG 392 ==
LOC: 2NENU → SUATTDRO 00:41
PROVIDERS: ADMIT Internal Medicine; ATTEND Internal Medicine

== ENCOUNTER 2019-07-10 15:18 | Inpatient (IN) ==
[2019-07-10] MEDS ORDERED: MOM Conc 10 ML UD.LIQ PO PRN (18:05)
[2019-07-10] MEDS ORDERED: Naloxone 0.4 MG/ML INJ IVP PRN (18:05)
[2019-07-10] MEDS ORDERED: *HR* Promethazine 25 MG/ML VIAL IVP PRN (18:05)
[2019-07-10] MEDS ORDERED: Acetaminophen 325 MG TABLET PO PRN (18:05)
[2019-07-10] MEDS ORDERED: Mag Hydrox/Al Hydrox/Simeth 30 ML UDC PO PRN (18:05)
[2019-07-10] MEDS ORDERED: Heparin 25,000 UNIT/250 ML D5W 25,000 UNIT/250 ML IV.SOLN IVC SCH (18:15)
[2019-07-10] MEDS ORDERED: Dextrose Gel 15 GM/37.5 ML TUBE PO PRN ×2 (18:15)
[2019-07-10] MEDS ORDERED: *HR* Dextrose 50 % in Water (Syg) 50 ML SYRINGE IVP PRN (18:15)
[2019-07-10] MEDS ORDERED: D5% in Water 1,000 ML IVC PRN (18:15)
[2019-07-10 18:34] LABS: Hematocrit 31.6 % (35.3-44.9); Hemoglobin 10.3 g/dL (11.5-15.4); Mean Corpuscular HGB Conc 32.6 g/dL (31.6-35.5); Mean Corpuscular Hemoglobin 33.9 pg (28.0-33.3); Mean Corpuscular Volume 103.9 fL (83.0-100.0); Mean Platelet Volume 9.7 fL (9.4-12.4); Platelet Count 238 K/mcL (140-400); Red Blood Count 3.04 M/mcL (3.82-4.97); Red Cell Distribution Width 11.9 % (11.5-14.5); White Blood Count 10.7 K/mcL (4.3-11.1)
[2019-07-10 18:39] LABS: Heparin anti-factor XA UFH < 0.04 IU/mL (0.30-0.70)
[2019-07-10 18:40] LABS: Prothrombin Time 10.8 Seconds (9.4-12.1)
[2019-07-10] MEDS: Insulin LISPRO 300 UNITS/3 ML VIAL SQ SCH (20:41)
[2019-07-11 02:12] LABS: Basophils % 0.4 %; Eosinophils # 0.2 K/mcL (0.0-0.6); Eosinophils % 1.6 %; Hematocrit 27.2 % (35.3-44.9); Hemoglobin 8.9 g/dL (11.5-15.4); Immature Granulocytes % 0.8 % (0-4); Lymphocytes # 2.4 K/mcL (0.6-4.6); Lymphocytes % 21.8 %; Mean Corpuscular HGB Conc 32.7 g/dL (31.6-35.5); Mean Corpuscular Hemoglobin 33.8 pg (28.0-33.3); Mean Corpuscular Volume 103.4 fL (83.0-100.0); Mean Platelet Volume 10.3 fL (9.4-12.4); Monocytes % 9.2 %; Neutrophils # 7.3 K/mcL (1.6-8.9); Platelet Count 231 K/mcL (140-400); Red Blood Count 2.63 M/mcL (3.82-4.97); Red Cell Distribution Width 11.9 % (11.5-14.5); Segmented Neutrophils % 66.2 %
[2019-07-11 02:32] LABS: Calcium 9.1 mg/dL (8.6-10.3); Magnesium 1.9 mg/dL (1.6-2.6); Phosphorous 3.3 mg/dL (2.7-4.5); Potassium 3.9 mEq/L (3.5-5.1)
[2019-07-11] MEDS ORDERED: *HR* Heparin 5,000 UNIT/ML VIAL SQ SCH (06:00)
[2019-07-11] MEDS: Insulin LISPRO 300 UNITS/3 ML VIAL SQ SCH ×4 (07:49→22:07)
[2019-07-11] MEDS: Aspirin Enteric Coated 81 MG Tablet PO SCH (07:49)
[2019-07-11 09:10] LABS: Hemoglobin 9.1 g/dL (11.5-15.4)
[2019-07-11] MEDS: Furosemide 20 MG/2 ML VIAL IVP SCH (12:00)
[2019-07-11] MEDS: Ondansetron 4 MG/2 ML VIAL IVP PRN (12:00)
[2019-07-11] MEDS ORDERED: Albuterol 2.5 MG/3 ML NEBULIZER IH PRN (12:22)
[2019-07-11] MEDS: Famotidine 20 MG TABLET PO SCH ×2 (14:06→20:11)
[2019-07-11] MEDS: amLODIPine 5 MG TABLET PO SCH (14:07)
[2019-07-11] MEDS: *HR* Heparin 5,000 UNIT/ML VIAL SQ SCH (16:49)
[2019-07-12 01:58] LABS: Basophils % 0.3 %; Eosinophils # 0.2 K/mcL (0.0-0.6); Eosinophils % 1.5 %; Hematocrit 26.8 % (35.3-44.9); Hemoglobin 8.7 g/dL (11.5-15.4); Immature Granulocytes % 0.7 % (0-4); Lymphocytes # 2.5 K/mcL (0.6-4.6); Lymphocytes % 25.7 %; Mean Corpuscular HGB Conc 32.5 g/dL (31.6-35.5); Mean Corpuscular Hemoglobin 33.5 pg (28.0-33.3); Mean Corpuscular Volume 103.1 fL (83.0-100.0); Mean Platelet Volume 9.8 fL (9.4-12.4); Monocytes % 10.5 %; Platelet Count 221 K/mcL (140-400); Red Cell Distribution Width 11.7 % (11.5-14.5); Segmented Neutrophils % 61.3 %; White Blood Count 9.7 K/mcL (4.3-11.1)
[2019-07-12 02:17] LABS: Calcium 9.2 mg/dL (8.6-10.3); Magnesium 1.9 mg/dL (1.6-2.6); Phosphorous 3.9 mg/dL (2.7-4.5)
[2019-07-12] MEDS: *HR* Heparin 5,000 UNIT/ML VIAL SQ SCH ×2 (06:05→16:50)
[2019-07-12] MEDS: Tiotropium 18 MCG inhalation IH SCH (07:49)
[2019-07-12] MEDS ORDERED: Isovue-370 500 ML BOTTLE IVP ONE ×2 (08:30→08:53)
[2019-07-12] MEDS ORDERED: NON-FORMULARY MEDICATION 1 EACH EACH (Omega-3/Dha/Epa/Fish Oil [Fish Oil 1,000 Mg Softgel] PO SCH (09:00)
[2019-07-12] MEDS: Cyanocobalamin (B-12) 1,000 MCG TABLET PO SCH (10:47)
[2019-07-12] MEDS: Famotidine 20 MG TABLET PO SCH ×2 (10:48→21:05)
[2019-07-12] MEDS: amLODIPine 5 MG TABLET PO SCH (10:48)
[2019-07-12] MEDS: Aspirin Enteric Coated 81 MG Tablet PO SCH (10:48)
[2019-07-12] MEDS: polyethylene glycoL 3350 17 GM POWD.PACK PO SCH (10:49)
[2019-07-12] MEDS: Furosemide 20 MG/2 ML VIAL IVP SCH (10:49)
[2019-07-12] MEDS: Insulin LISPRO 300 UNITS/3 ML VIAL SQ SCH ×4 (10:51→21:26)
[2019-07-12] MEDS: Ondansetron 4 MG/2 ML VIAL IVP PRN (20:55)
[2019-07-13 02:08] LABS: Basophils % 0.4 %; Eosinophils # 0.2 K/mcL (0.0-0.6); Eosinophils % 2.1 %; Hematocrit 26.7 % (35.3-44.9); Immature Granulocytes % 0.8 % (0-4); Lymphocytes # 2.5 K/mcL (0.6-4.6); Lymphocytes % 24.9 %; Mean Corpuscular HGB Conc 33.7 g/dL (31.6-35.5); Mean Corpuscular Hemoglobin 34.2 pg (28.0-33.3); Mean Corpuscular Volume 101.5 fL (83.0-100.0); Mean Platelet Volume 10.1 fL (9.4-12.4); Monocytes % 9.5 %; Neutrophils # 6.4 K/mcL (1.6-8.9); Platelet Count 229 K/mcL (140-400); Red Blood Count 2.63 M/mcL (3.82-4.97); Red Cell Distribution Width 11.7 % (11.5-14.5); Segmented Neutrophils % 62.3 %; White Blood Count 10.2 K/mcL (4.3-11.1)
[2019-07-13 02:26] LABS: Calcium 9.7 mg/dL (8.6-10.3); Phosphorous 3.6 mg/dL (2.7-4.5); Potassium 4.1 mEq/L (3.5-5.1)
[2019-07-13] MEDS: *HR* Heparin 5,000 UNIT/ML VIAL SQ SCH ×2 (04:57→16:19)
[2019-07-13] MEDS: Tiotropium 18 MCG inhalation IH SCH (08:06)
[2019-07-13] MEDS: Insulin LISPRO 300 UNITS/3 ML VIAL SQ SCH ×4 (08:25→20:06)
[2019-07-13] MEDS: Cyanocobalamin (B-12) 1,000 MCG TABLET PO SCH (08:26)
[2019-07-13] MEDS: Famotidine 20 MG TABLET PO SCH (08:26)
[2019-07-13] MEDS: Aspirin Enteric Coated 81 MG Tablet PO SCH (08:27)
[2019-07-13] MEDS: amLODIPine 5 MG TABLET PO SCH (08:27)
[2019-07-13] MEDS: polyethylene glycoL 3350 17 GM POWD.PACK PO SCH (08:29)
[2019-07-13] MEDS ORDERED: Furosemide 20 MG TABLET PO PRN (09:00)
[2019-07-13] MEDS ORDERED: 0.9 % Sodium Chloride 250 ML IVC ONE (14:04)
[2019-07-13] MEDS ORDERED: 0.9 % Sodium Chloride 1,000 ML IVC SCH (14:15)
[2019-07-13] MEDS: *HR* HYDROcodone/Acet 5/325 mg TABLET PO PRN ×2 (15:04→21:44)
[2019-07-14 01:38] LABS: Hematocrit 29.5 % (35.3-44.9); Hemoglobin 9.1 g/dL (11.5-15.4); Mean Corpuscular HGB Conc 30.8 g/dL (31.6-35.5); Mean Corpuscular Hemoglobin 33.6 pg (28.0-33.3); Platelet Count 205 K/mcL (140-400); Red Blood Count 2.71 M/mcL (3.82-4.97); Red Cell Distribution Width 11.8 % (11.5-14.5); White Blood Count 8.5 K/mcL (4.3-11.1)
[2019-07-14 01:40] LABS: Mean Corpuscular Volume 108.9 fL (83.0-100.0)
[2019-07-14 01:55] LABS: Potassium 4.5 mEq/L (3.5-5.1)
[2019-07-14] MEDS: *HR* Heparin 5,000 UNIT/ML VIAL SQ SCH (05:29)
[2019-07-14] MEDS: polyethylene glycoL 3350 17 GM POWD.PACK PO SCH (07:31)
[2019-07-14] MEDS: Aspirin Enteric Coated 81 MG Tablet PO SCH (07:34)
[2019-07-14] MEDS: Cyanocobalamin (B-12) 1,000 MCG TABLET PO SCH (07:34)
[2019-07-14] MEDS: amLODIPine 5 MG TABLET PO SCH (07:34)
[2019-07-14] MEDS: Insulin LISPRO 300 UNITS/3 ML VIAL SQ SCH ×2 (07:38→11:36)
[2019-07-14] MEDS: Tiotropium 18 MCG inhalation IH SCH (10:17)
[2019-07-14] MEDS ORDERED: *HR* Midazolam HCl 2 MG/2 ML VIAL IVP PRN (14:03)
[2019-07-14] MEDS ORDERED: Lidocaine Viscous Oral Soln 15 ML SOLUTION MM PRN (14:03)
[2019-07-14] MEDS ORDERED: 0.9 % Sodium Chloride 500 ML IVC ONE (14:03)
[2019-07-14] MEDS ORDERED: *HR* FentaNYL (PF) 100 MCG/2 ML VIAL IVP PRN (14:03)
[2019-07-14 14:19] VITALS: BP 158/68
[2019-07-14] MEDS ORDERED: *HR* Midazolam HCl 5 MG/5 ML VIAL IVP ONE ×2 (14:21→14:22)
== END 2019-07-14 16:15 | DRG 64 ==
LOC: 2ANU → SUATTDRO 17:39
PROVIDERS: ADMIT Internal Medicine; ATTEND Family Medicine

== ENCOUNTER 2019-07-26 12:50 | Observation (INO) ==
[2019-07-26 14:09] LABS: Bilirubin,Urine Negative (Negative); Blood,Urine Negative (Negative); Clarity,Urine Clear (Clear); Color,Urine Yellow (Yellow); Glucose,Urine (UA) Normal (Normal); Ketones,Urine Negative (Negative); Leukocyte Esterase,Urine Negative (Negative); Nitrite,Urine Negative (Negative); PH,Urine 5.5 pH Units (5.0-8.0); Protein,Urine >=300 mg/dL (Neg-Trace); Specific Gravity,Urine 1.022 (1.010-1.025); Urobilinogen,Urine Normal (Normal)
[2019-07-26 14:12] LABS: Hyaline Casts,Urine Few per lpf (None-Few)
[2019-07-26 14:25] LABS: Basophils # 0.1 K/mcL (0.0-0.2); Basophils % 0.4 %; Eosinophils # 0.2 K/mcL (0.0-0.6); Eosinophils % 1.7 %; Hematocrit 30.1 % (35.3-44.9); Hemoglobin 9.6 g/dL (11.5-15.4); Immature Granulocytes % 0.8 % (0-4); Lymphocytes # 2.1 K/mcL (0.6-4.6); Lymphocytes % 17.3 %; Mean Corpuscular HGB Conc 31.9 g/dL (31.6-35.5); Mean Corpuscular Hemoglobin 33.6 pg (28.0-33.3); Mean Corpuscular Volume 105.2 fL (83.0-100.0); Mean Platelet Volume 10.1 fL (9.4-12.4); Monocytes % 8.3 %; Neutrophils # 8.6 K/mcL (1.6-8.9); Platelet Count 309 K/mcL (140-400); Red Blood Count 2.86 M/mcL (3.82-4.97); Red Cell Distribution Width 11.7 % (11.5-14.5); Segmented Neutrophils % 71.5 %; White Blood Count 12.1 K/mcL (4.3-11.1)
[2019-07-26 14:30] LABS: Squamous Epithelial Cell,Urine Few per lpf (None-Few)
[2019-07-26 14:31] LABS: Bacteria,Urine Few per hpf (None-Few); RBC,Urine 0-3 per hpf (0-3)
[2019-07-26 14:46] LABS: Alanine Aminotransferase 17 Units/L (7-52); Albumin 3.7 g/dL (3.5-5.7); Albumin/Globulin Ratio 1.4 (1.1-2.2); Alkaline Phosphatase 66 Units/L (34-104); Aspartate Amino Transferase 19 Units/L (13-39); BUN/Creatinine Ratio 20 (6-26); Bilirubin,Total 0.4 mg/dL (0.3-1.0); Blood Urea Nitrogen 32 mg/dL (8-23); Calcium 9.8 mg/dL (8.6-10.3); Carbon Dioxide 18 mEq/L (23-29); Chloride 113 mEq/L (98-107); Globulin 2.7 g/dL (2.4-3.5); Glucose 156 mg/dL (70-105); Osmolality,Calculated 308 (280-300); Potassium 4.1 mEq/L (3.5-5.1); Sodium 144 mEq/L (136-145); Total Protein 6.4 g/dL (6.4-8.9); Troponin I < 0.03 ng/mL (< 0.04); eGFR For African Americans 38 (> 60); eGFR For Non-African Americans 32 (> 60)
[2019-07-26] MEDS ORDERED: Naloxone 0.4 MG/ML INJ IVP PRN (15:24)
[2019-07-26] MEDS ORDERED: Ondansetron 4 MG/2 ML VIAL IVP PRN (15:24)
[2019-07-26] MEDS ORDERED: *HR* Dextrose 50 % in Water (Syg) 50 ML SYRINGE IVP PRN (15:33)
[2019-07-26] MEDS ORDERED: Dextrose Gel 15 GM/37.5 ML TUBE PO PRN ×2 (15:33)
[2019-07-26] MEDS ORDERED: D5% in Water 1,000 ML IVC PRN (15:33)
[2019-07-26] MEDS ORDERED: 0.9 % Sodium Chloride 1,000 ML IVC SCH (17:30)
[2019-07-26] MEDS: Insulin LISPRO 300 UNITS/3 ML VIAL SQ SCH (18:33)
[2019-07-27 02:33] LABS: Basophils # 0.1 K/mcL (0.0-0.2); Basophils % 0.6 %; Eosinophils # 0.3 K/mcL (0.0-0.6); Eosinophils % 2.5 %; Hematocrit 27.7 % (35.3-44.9); Hemoglobin 9.2 g/dL (11.5-15.4); Immature Granulocytes % 0.9 % (0-4); Lymphocytes # 2.1 K/mcL (0.6-4.6); Mean Corpuscular HGB Conc 33.2 g/dL (31.6-35.5); Mean Corpuscular Hemoglobin 34.5 pg (28.0-33.3); Mean Corpuscular Volume 103.7 fL (83.0-100.0); Monocytes # 1.1 K/mcL (0.0-1.3); Monocytes % 10.9 %; Neutrophils # 6.7 K/mcL (1.6-8.9); Platelet Count 254 K/mcL (140-400); Red Blood Count 2.67 M/mcL (3.82-4.97); Red Cell Distribution Width 11.7 % (11.5-14.5); Segmented Neutrophils % 65.1 %; White Blood Count 10.3 K/mcL (4.3-11.1)
[2019-07-27 02:54] LABS: Calcium 9.1 mg/dL (8.6-10.3); Potassium 3.9 mEq/L (3.5-5.1)
[2019-07-27] MEDS: Insulin LISPRO 300 UNITS/3 ML VIAL SQ SCH ×3 (07:20→16:44)
[2019-07-27] MEDS ORDERED: Cyanocobalamin (B-12) 1,000 MCG TABLET PO SCH (09:00)
[2019-07-27] MEDS ORDERED: Aspirin Enteric Coated 81 MG Tablet PO SCH (09:00)
[2019-07-27] MEDS ORDERED: polyethylene glycoL 3350 17 GM POWD.PACK PO SCH (09:00)
[2019-07-27] MEDS ORDERED: amLODIPine 5 MG TABLET PO SCH (09:00)
[2019-07-27] MEDS ORDERED: Nicotine 21 MG PATCH.TD24 TD SCH (09:00)
[2019-07-27] MEDS ORDERED: Famotidine 20 MG TABLET PO SCH (09:00)
[2019-07-27] MEDS ORDERED: Tiotropium 18 MCG inhalation IH SCH (10:00)
[2019-07-27] MEDS ORDERED: Acetaminophen 325 MG TABLET PO PRN (10:43)
[2019-07-27 15:02] VITALS: BP 168/69
== END 2019-07-27 16:49 ==
LOC: EMEROOARM 12:50 → 3BNU 12:50 → SUATTDRO 15:24 → 3BNU 16:11
PROVIDERS: ADMIT Internal Medicine; ATTEND Internal Medicine

== ENCOUNTER 2020-05-04 05:06 | Inpatient (IN) ==
[2020-05-04] MEDS ORDERED: Perflutren Lipid Microsphere 1.3 ML in 0.9 % Sodium Chloride 8.7 ML IVP PRN ×2 (13:03→21:12)
[2020-05-04] MEDS ORDERED: Naloxone 0.4 MG/ML INJ IVP PRN ×3 (13:19→21:12)
[2020-05-04] MEDS ORDERED: Ondansetron 4 MG/2 ML VIAL IVP PRN ×2 (13:19→21:12)
[2020-05-04 13:46] LABS: Basophils % 0.2 %; Hematocrit 28.2 % (35.3-44.9); Hemoglobin 8.8 g/dL (11.5-15.4); Immature Granulocytes % 0.8 % (0-4); Lymphocytes % 14.8 %; Mean Corpuscular HGB Conc 31.2 g/dL (31.6-35.5); Mean Corpuscular Hemoglobin 31.3 pg (28.0-33.3); Mean Corpuscular Volume 100.4 fL (83.0-100.0); Mean Platelet Volume 11.3 fL (9.4-12.4); Monocytes # 1.6 K/mcL (0.0-1.3); Monocytes % 11.7 %; Neutrophils # 9.6 K/mcL (1.6-8.9); Platelet Count 247 K/mcL (140-400); Red Blood Count 2.81 M/mcL (3.82-4.97); Red Cell Distribution Width 13.9 % (11.5-14.5); Segmented Neutrophils % 72.5 %; White Blood Count 13.2 K/mcL (4.3-11.1)
[2020-05-04 13:51] LABS: INR 1.1; Prothrombin Time 12.2 Seconds (9.4-12.1)
[2020-05-04 13:53] LABS: Activated Partial Thrombo Time 27.4 Seconds (26.0-36.0)
[2020-05-04 14:02] LABS: Alanine Aminotransferase 20 Units/L (7-52); Albumin 3.4 g/dL (3.5-5.7); Alkaline Phosphatase 86 Units/L (34-104); Aspartate Amino Transferase 24 Units/L (13-39); BUN/Creatinine Ratio 24 (6-26); Bilirubin,Total 0.5 mg/dL (0.3-1.0); Blood Urea Nitrogen 38 mg/dL (8-23); Calcium 9.3 mg/dL (8.6-10.3); Carbon Dioxide 25 mEq/L (23-29); Chloride 108 mEq/L (98-107); Chol/HDL Ratio 1.8 (0-4.9); Cholesterol 89 mg/dL (< 200); Globulin 3.3 g/dL (2.4-3.5); Glucose 125 mg/dL (70-105); HDL Cholesterol 49 mg/dL (40-59); LDL Cholesterol,Calculated 26 mg/dL (< 100); Osmolality,Calculated 303 (280-300); Potassium 4.9 mEq/L (3.5-5.1); Sodium 141 mEq/L (136-145); Total Protein 6.7 g/dL (6.4-8.9); Triglycerides 72 mg/dL (< 150); Troponin I < 0.03 ng/mL (< 0.04); eGFR For African Americans 38 (> 60); eGFR For Non-African Americans 31 (> 60)
[2020-05-04] MEDS ORDERED: *HR* Dextrose 50 % in Water (Vial) 50 ML VIAL IVP PRN ×2 (14:02→21:12)
[2020-05-04] MEDS ORDERED: D5% in Water 1,000 ML IVC PRN ×2 (14:02→21:12)
[2020-05-04] MEDS ORDERED: Dextrose Gel 15 GM/37.5 ML TUBE PO PRN ×4 (14:02→21:12)
[2020-05-04 14:05] LABS: Estimated Average Glucose 114 mg/dl; Hemoglobin A1C 5.6 %
[2020-05-04 14:37] LABS: Bacteria,Urine Few per hpf (None-Few); Bilirubin,Urine Negative (Negative); Blood,Urine Moderate (Negative); Clarity,Urine Ex.Turbid (Clear); Color,Urine Yellow (Yellow); Glucose,Urine (UA) Normal (Normal); Hyaline Casts,Urine Many per lpf (None Seen); Ketones,Urine Negative (Negative); Leukocyte Esterase,Urine Large (Negative); Mucus,Urine Few per lpf (None-Few); Nitrite,Urine Negative (Negative); PH,Urine 5.5 pH Units (5.0-8.0); Protein,Urine >=300 mg/dL (Neg-Trace); RBC,Urine 50-100 per hpf (0-3); Renal Epithelial Cells,Urine Few per hpf (None-Few); Specific Gravity,Urine 1.027 (1.010-1.025); Squamous Epithelial Cell,Urine Few per hpf (None-Few); Transitional Epi Cells,Urine Few per hpf (None-Few); Urobilinogen,Urine Normal (Normal); WBC,Urine TNTC per hpf (0-3)
[2020-05-04 16:23] LABS: Adenovirus Not Detected (Not Detect); Coronavirus 229E Not Detected (Not Detect); Coronavirus HKU1 Not Detected (Not Detect); Coronavirus NL63 Not Detected (Not Detect); Coronavirus OC43 Not Detected (Not Detect)
[2020-05-04 16:24] LABS: Human Metapneumovirus Not Detected (Not Detect); Human Rhinovirus/Enterovirus Not Detected (Not Detect); Influenza A Subtype 2009 H1 Not Detected (Not Detect); Influenza B Not Detected (Not Detect); Parainfluenza Virus 1 Not Detected (Not Detect); Parainfluenza Virus 2 Not Detected (Not Detect); Parainfluenza Virus 3 Not Detected (Not Detect); Parainfluenza Virus 4 Not Detected (Not Detect); SARS-CoV-2 DETECTED (Not Detect)
[2020-05-04 16:25] LABS: Bordetella Pertussis Not Detected (Not Detect); Chlamydophila pneumoniae Not Detected (Not Detect); Mycoplasma pneumoniae Not Detected (Not Detect); Respiratory Syncytial Virus Not Detected (Not Detect)
[2020-05-04] MEDS ORDERED: *HR* FentaNYL (PF) 100 MCG/2 ML VIAL ONE (16:41)
[2020-05-04] MEDS ORDERED: Lidocaine -MPF 2% 2 ML VIAL ONE ×2 (16:41→18:42)
[2020-05-04] MEDS ORDERED: *HR* Succinylcholine 200 MG/10 ML VIAL IVP ONE (16:41)
[2020-05-04] MEDS ORDERED: Lidocaine HCL 4 ML Topical Solution (Laryng-O-Jet Kit Sterile Pak) TP ONE (16:42)
[2020-05-04] MEDS ORDERED: *HR* Propofol 200 MG/20 ML VIAL IVP ONE (16:42)
[2020-05-04] MEDS ORDERED: Ondansetron 4 MG/2 ML VIAL ONE (16:44)
[2020-05-04] MEDS ORDERED: Dexamethasone 4 MG/ML VIAL ONE (16:44)
[2020-05-04] MEDS ORDERED: Artificial Tears SOLN 15 ML BOTTLE BOTH EYES PRN ×2 (17:02→21:12)
[2020-05-04] MEDS ORDERED: Famotidine 20 MG/2 ML VIAL IVP SCH (18:00)
[2020-05-04] MEDS ORDERED: Insulin LISPRO 300 UNITS/3 ML VIAL SUBQ SCH (18:00)
[2020-05-04] MEDS ORDERED: *HR* PHENYLEPHRINE 1,000 MCG/10 ML SYRINGE IVP ONE (18:42)
[2020-05-04] MEDS ORDERED: *HR* Etomidate 40 MG/20 ML VIAL IVP ONE (18:42)
[2020-05-04] MEDS ORDERED: cefTRIAXone 1,000 MG in 0.9 % Sodium Chloride Mini Bag 100 ML IVPB SCH (19:00)
[2020-05-04] MEDS ORDERED: Ketorolac 30 MG/ML VIAL ONE (19:58)
[2020-05-04] MEDS ORDERED: *HR* Metoprolol 5 MG/5 ML VIAL IVP ONE (20:14)
[2020-05-04] MEDS ORDERED: Sennosides/Docusate Sodium TABLET PO SCH (21:00)
[2020-05-04] MEDS ORDERED: *HR* LORazepam 2 MG/ML VIAL IVP ONE (21:45)
[2020-05-05] MEDS: Insulin LISPRO 300 UNITS/3 ML VIAL SUBQ SCH ×4 (00:21→17:52)
[2020-05-05] MEDS: CeFAZolin 2 GM/120 ML BAG IVPB SCH ×2 (00:25→09:24)
[2020-05-05] MEDS: Famotidine 20 MG/2 ML VIAL IVP SCH ×2 (06:40→18:02)
[2020-05-05 08:54] LABS: Adenovirus Not Detected (Not Detect); Bordetella Pertussis Not Detected (Not Detect); Chlamydophila pneumoniae Not Detected (Not Detect); Coronavirus 229E Not Detected (Not Detect); Coronavirus HKU1 Not Detected (Not Detect); Coronavirus NL63 Not Detected (Not Detect); Coronavirus OC43 Not Detected (Not Detect); Human Metapneumovirus Not Detected (Not Detect); Human Rhinovirus/Enterovirus Not Detected (Not Detect); Influenza A Subtype 2009 H1 Not Detected (Not Detect); Influenza B Not Detected (Not Detect); Mycoplasma pneumoniae Not Detected (Not Detect); Parainfluenza Virus 1 Not Detected (Not Detect); Parainfluenza Virus 2 Not Detected (Not Detect); Parainfluenza Virus 3 Not Detected (Not Detect); Parainfluenza Virus 4 Not Detected (Not Detect); Respiratory Syncytial Virus Not Detected (Not Detect)
[2020-05-05 08:57] LABS: SARS-CoV-2 DETECTED (Not Detect)
[2020-05-05] MEDS ORDERED: *HR* SitaGLIPtin 25 MG TABLET PO SCH (09:00)
[2020-05-05] MEDS ORDERED: polyethylene glycoL 3350 17 GM POWD.PACK PO SCH (09:00)
[2020-05-05] MEDS ORDERED: Divalproex Sodium 125 MG Sprinkle Capsule (DR) PO SCH (09:00)
[2020-05-05] MEDS ORDERED: Aspirin Enteric Coated 81 MG Tablet PO SCH (09:00)
[2020-05-05] MEDS ORDERED: amLODIPine 5 MG TABLET PO SCH (09:00)
[2020-05-05] MEDS ORDERED: Tiotropium 10 INH DOSE IH SCH (09:00)
[2020-05-05] MEDS: Aspirin Enteric Coated 81 MG Tablet PO SCH ×2 (09:23→19:45)
[2020-05-05] MEDS: amLODIPine 5 MG TABLET PO SCH (09:23)
[2020-05-05] MEDS: *HR* SitaGLIPtin 25 MG TABLET PO SCH (09:23)
[2020-05-05] MEDS: Sennosides/Docusate Sodium TABLET PO SCH ×2 (09:23→20:53)
[2020-05-05] MEDS: Divalproex Sodium 125 MG Sprinkle Capsule (DR) PO SCH (09:23)
[2020-05-05] MEDS: polyethylene glycoL 3350 17 GM POWD.PACK PO SCH (09:24)
[2020-05-05 10:09] LABS: Basophils % 0.1 %; Hematocrit 24.1 % (35.3-44.9); Hemoglobin 7.4 g/dL (11.5-15.4); Immature Granulocytes % 0.6 % (0-4); Lymphocytes # 1.3 K/mcL (0.6-4.6); Lymphocytes % 11.8 %; Mean Corpuscular HGB Conc 30.7 g/dL (31.6-35.5); Mean Corpuscular Hemoglobin 31.5 pg (28.0-33.3); Mean Corpuscular Volume 102.6 fL (83.0-100.0); Mean Platelet Volume 11.2 fL (9.4-12.4); Monocytes # 1.2 K/mcL (0.0-1.3); Monocytes % 10.9 %; Neutrophils # 8.5 K/mcL (1.6-8.9); Platelet Count 211 K/mcL (140-400); Red Blood Count 2.35 M/mcL (3.82-4.97); Red Cell Distribution Width 14.2 % (11.5-14.5); Segmented Neutrophils % 76.6 %
[2020-05-05 10:28] LABS: Potassium 4.7 mEq/L (3.5-5.1)
[2020-05-05] MEDS ORDERED: *HR* Metoprolol 5 MG/5 ML VIAL IVP PRN (11:21)
[2020-05-05] MEDS: Tiotropium 10 INH DOSE IH SCH (12:02)
[2020-05-05] MEDS: *HR* OxyCODONE/APAP 5/325 TABLET PO PRN (15:15)
[2020-05-05] MEDS ORDERED: *HR* Enoxaparin 40 MG/0.4 ML SYRINGE SQ SCH (18:00)
[2020-05-05] MEDS: cefTRIAXone 1,000 MG in 0.9 % Sodium Chloride Mini Bag 100 ML IVPB SCH (18:02)
[2020-05-05 19:34] LABS: Folate 9.7 ng/mL (3.0-16.0)
[2020-05-06] MEDS: Insulin LISPRO 300 UNITS/3 ML VIAL SUBQ SCH ×4 (00:07→18:14)
[2020-05-06] MEDS: *HR* OxyCODONE/APAP 5/325 TABLET PO PRN ×3 (02:20→15:35)
[2020-05-06 02:46] LABS: Basophils % 0.3 %; Eosinophils # 0.1 K/mcL (0.0-0.6); Eosinophils % 0.7 %; Hematocrit 23.4 % (35.3-44.9); Hemoglobin 7.2 g/dL (11.5-15.4); Immature Granulocytes % 0.4 % (0-4); Lymphocytes # 1.7 K/mcL (0.6-4.6); Lymphocytes % 18.5 %; Mean Corpuscular HGB Conc 30.8 g/dL (31.6-35.5); Mean Platelet Volume 11.4 fL (9.4-12.4); Monocytes # 1.3 K/mcL (0.0-1.3); Neutrophils # 6.2 K/mcL (1.6-8.9); Platelet Count 215 K/mcL (140-400); Red Blood Count 2.25 M/mcL (3.82-4.97); Red Cell Distribution Width 14.2 % (11.5-14.5); Segmented Neutrophils % 66.1 %; White Blood Count 9.4 K/mcL (4.3-11.1)
[2020-05-06 03:07] LABS: Calcium 8.9 mg/dL (8.6-10.3); Potassium 4.3 mEq/L (3.5-5.1)
[2020-05-06] MEDS: Famotidine 20 MG/2 ML VIAL IVP SCH (05:51)
[2020-05-06] MEDS ORDERED: Haloperidol Lactate 5 MG/ML VIAL IVP ONE (06:05)
[2020-05-06] MEDS: Aspirin Enteric Coated 81 MG Tablet PO SCH ×2 (09:21)
[2020-05-06] MEDS: Sennosides/Docusate Sodium TABLET PO SCH ×2 (09:24→20:50)
[2020-05-06] MEDS: amLODIPine 5 MG TABLET PO SCH (09:24)
[2020-05-06] MEDS: polyethylene glycoL 3350 17 GM POWD.PACK PO SCH (09:24)
[2020-05-06] MEDS: Divalproex Sodium 125 MG Sprinkle Capsule (DR) PO SCH (09:25)
[2020-05-06] MEDS: *HR* SitaGLIPtin 25 MG TABLET PO SCH (09:25)
[2020-05-06] MEDS: Tiotropium 10 INH DOSE IH SCH (10:19)
[2020-05-06] MEDS: *HR* Enoxaparin 30 MG/0.3 ML SYRINGE SQ SCH (17:54)
[2020-05-06] MEDS: cefTRIAXone 1,000 MG in 0.9 % Sodium Chloride Mini Bag 100 ML IVPB SCH (17:54)
[2020-05-06] MEDS: *HR* OxyCODONE Immed Rel 5 MG TABLET PO PRN (23:56)
[2020-05-07] MEDS: Insulin LISPRO 300 UNITS/3 ML VIAL SUBQ SCH ×5 (00:10→21:29)
[2020-05-07 02:30] LABS: Basophils # 0.1 K/mcL (0.0-0.2); Basophils % 0.5 %; Eosinophils # 0.2 K/mcL (0.0-0.6); Eosinophils % 1.7 %; Hematocrit 26.1 % (35.3-44.9); Hemoglobin 7.8 g/dL (11.5-15.4); Immature Granulocytes % 0.9 % (0-4); Lymphocytes # 1.9 K/mcL (0.6-4.6); Lymphocytes % 17.4 %; Mean Corpuscular HGB Conc 29.9 g/dL (31.6-35.5); Mean Corpuscular Hemoglobin 31.5 pg (28.0-33.3); Mean Corpuscular Volume 105.2 fL (83.0-100.0); Mean Platelet Volume 11.5 fL (9.4-12.4); Monocytes # 1.3 K/mcL (0.0-1.3); Neutrophils # 7.3 K/mcL (1.6-8.9); Platelet Count 250 K/mcL (140-400); Red Blood Count 2.48 M/mcL (3.82-4.97); Red Cell Distribution Width 13.8 % (11.5-14.5); Segmented Neutrophils % 67.5 %; White Blood Count 10.9 K/mcL (4.3-11.1)
[2020-05-07 02:52] LABS: Potassium 4.3 mEq/L (3.5-5.1)
[2020-05-07] MEDS ORDERED: Haloperidol Lactate 5 MG/ML VIAL IM ONE (05:59)
[2020-05-07] MEDS: *HR* OxyCODONE Immed Rel 5 MG TABLET PO PRN ×3 (06:57→23:38)
[2020-05-07] MEDS: Famotidine 20 MG/2 ML VIAL IVP SCH (07:12)
[2020-05-07] MEDS ORDERED: *HR* Dextrose 50 % in Water (Vial) 50 ML VIAL IVP PRN (07:59)
[2020-05-07] MEDS ORDERED: D5% in Water 1,000 ML IVC PRN (07:59)
[2020-05-07] MEDS ORDERED: Dextrose Gel 15 GM/37.5 ML TUBE PO PRN ×2 (07:59)
[2020-05-07] MEDS: amLODIPine 5 MG TABLET PO SCH (09:40)
[2020-05-07] MEDS: Divalproex Sodium 125 MG Sprinkle Capsule (DR) PO SCH (09:40)
[2020-05-07] MEDS: *HR* OxyCODONE/APAP 5/325 TABLET PO PRN (09:40)
[2020-05-07] MEDS: Dexamethasone 4 MG/ML VIAL IVP SCH (09:40)
[2020-05-07] MEDS: Aspirin Enteric Coated 81 MG Tablet PO SCH ×2 (09:42)
[2020-05-07] MEDS: Cyanocobalamin (B-12) 1,000 MCG TABLET PO SCH (09:42)
[2020-05-07] MEDS: polyethylene glycoL 3350 17 GM POWD.PACK PO SCH (09:43)
[2020-05-07] MEDS: Sennosides/Docusate Sodium TABLET PO SCH ×2 (09:43→22:10)
[2020-05-07] MEDS: Tiotropium 10 INH DOSE IH SCH (10:16)
[2020-05-07] MEDS: *HR* Enoxaparin 30 MG/0.3 ML SYRINGE SQ SCH (17:38)
[2020-05-07] MEDS: cefTRIAXone 1,000 MG in 0.9 % Sodium Chloride Mini Bag 100 ML IVPB SCH (17:38)
[2020-05-07] MEDS ORDERED: Furosemide 20 MG/2 ML VIAL IVP ONE (18:44)
[2020-05-07] MEDS: Ipratropium 1 PUFF INHALER IH SCH ×2 (20:21→23:52)
[2020-05-07] MEDS ORDERED: Haloperidol Lactate 5 MG/ML VIAL IVP ONE (21:52)
[2020-05-08 04:02] LABS: Basophils # 0.1 K/mcL (0.0-0.2); Basophils % 0.4 %; Eosinophils # 0.1 K/mcL (0.0-0.6); Eosinophils % 0.5 %; Hematocrit 25.2 % (35.3-44.9); Hemoglobin 7.6 g/dL (11.5-15.4); Immature Granulocytes % 1.1 % (0-4); Lymphocytes # 2.2 K/mcL (0.6-4.6); Lymphocytes % 19.9 %; Mean Corpuscular HGB Conc 30.2 g/dL (31.6-35.5); Mean Corpuscular Hemoglobin 31.4 pg (28.0-33.3); Mean Corpuscular Volume 104.1 fL (83.0-100.0); Mean Platelet Volume 11.1 fL (9.4-12.4); Monocytes # 1.5 K/mcL (0.0-1.3); Monocytes % 13.6 %; Neutrophils # 7.2 K/mcL (1.6-8.9); Platelet Count 267 K/mcL (140-400); Red Blood Count 2.42 M/mcL (3.82-4.97); Red Cell Distribution Width 13.7 % (11.5-14.5); Segmented Neutrophils % 64.5 %; White Blood Count 11.2 K/mcL (4.3-11.1)
[2020-05-08 04:18] LABS: Calcium 9.2 mg/dL (8.6-10.3); Potassium 4.3 mEq/L (3.5-5.1)
[2020-05-08] MEDS: Ipratropium 1 PUFF INHALER IH SCH ×6 (04:28→20:49)
[2020-05-08] MEDS: Famotidine 20 MG/2 ML VIAL IVP SCH (05:20)
[2020-05-08] MEDS: amLODIPine 5 MG TABLET PO SCH (07:56)
[2020-05-08] MEDS: Aspirin Enteric Coated 81 MG Tablet PO SCH ×2 (07:57→07:58)
[2020-05-08] MEDS: Cyanocobalamin (B-12) 1,000 MCG TABLET PO SCH (07:57)
[2020-05-08] MEDS: Sennosides/Docusate Sodium TABLET PO SCH ×2 (07:57→20:59)
[2020-05-08] MEDS: Dexamethasone 4 MG/ML VIAL IVP SCH (07:58)
[2020-05-08] MEDS: Divalproex Sodium 125 MG Sprinkle Capsule (DR) PO SCH (07:58)
[2020-05-08] MEDS: polyethylene glycoL 3350 17 GM POWD.PACK PO SCH (08:00)
[2020-05-08] MEDS: Insulin LISPRO 300 UNITS/3 ML VIAL SUBQ SCH ×4 (08:01→21:24)
[2020-05-08] MEDS: Tiotropium 10 INH DOSE IH SCH (08:38)
[2020-05-08] MEDS ORDERED: Furosemide 20 MG/2 ML VIAL IVP SCH (09:00)
[2020-05-08] MEDS: cefTRIAXone 1,000 MG in 0.9 % Sodium Chloride Mini Bag 100 ML IVPB SCH ×2 (18:07→21:00)
[2020-05-08] MEDS: *HR* Enoxaparin 30 MG/0.3 ML SYRINGE SQ SCH (18:08)
[2020-05-08] MEDS ORDERED: Haloperidol Lactate 5 MG/ML VIAL IM ONE (20:29)
[2020-05-08] MEDS: Melatonin 3 MG TABLET PO SCH (21:00)
[2020-05-08] MEDS: Mirtazapine 15 MG TABLET PO SCH (21:00)
[2020-05-08] MEDS: traZODone 50 MG TABLET PO SCH (21:00)
[2020-05-09] MEDS: Ipratropium 1 PUFF INHALER IH SCH ×5 (00:20→15:52)
[2020-05-09 01:05] LABS: Basophils % 0.1 %; Hematocrit 24.8 % (35.3-44.9); Hemoglobin 7.6 g/dL (11.5-15.4); Lymphocytes # 0.9 K/mcL (0.6-4.6); Lymphocytes % 12.8 %; Mean Corpuscular HGB Conc 30.6 g/dL (31.6-35.5); Mean Corpuscular Volume 101.2 fL (83.0-100.0); Mean Platelet Volume 10.8 fL (9.4-12.4); Monocytes # 0.4 K/mcL (0.0-1.3); Monocytes % 5.1 %; Neutrophils # 5.5 K/mcL (1.6-8.9); Platelet Count 279 K/mcL (140-400); Red Blood Count 2.45 M/mcL (3.82-4.97); Red Cell Distribution Width 13.6 % (11.5-14.5); White Blood Count 6.8 K/mcL (4.3-11.1)
[2020-05-09 01:36] LABS: Potassium 4.7 mEq/L (3.5-5.1)
[2020-05-09] MEDS: Famotidine 20 MG/2 ML VIAL IVP SCH (06:35)
[2020-05-09] MEDS: Tiotropium 10 INH DOSE IH SCH (07:40)
[2020-05-09] MEDS: polyethylene glycoL 3350 17 GM POWD.PACK PO SCH ×2 (09:02→13:29)
[2020-05-09] MEDS: Dexamethasone 4 MG/ML VIAL IVP SCH (09:03)
[2020-05-09] MEDS: Insulin LISPRO 300 UNITS/3 ML VIAL SUBQ SCH ×4 (09:03→20:23)
[2020-05-09] MEDS: Sennosides/Docusate Sodium TABLET PO SCH ×3 (09:05→20:25)
[2020-05-09] MEDS: Aspirin Enteric Coated 81 MG Tablet PO SCH ×4 (09:05→13:28)
[2020-05-09] MEDS: Divalproex Sodium 125 MG Sprinkle Capsule (DR) PO SCH ×2 (09:05→13:28)
[2020-05-09] MEDS: amLODIPine 5 MG TABLET PO SCH ×2 (09:06→13:29)
[2020-05-09] MEDS: Cyanocobalamin (B-12) 1,000 MCG TABLET PO SCH ×2 (09:07→13:29)
[2020-05-09] MEDS: traZODone 50 MG TABLET PO SCH ×4 (09:07→20:24)
[2020-05-09] MEDS: *HR* Enoxaparin 30 MG/0.3 ML SYRINGE SQ SCH (17:37)
[2020-05-09] MEDS: cefTRIAXone 1,000 MG in 0.9 % Sodium Chloride Mini Bag 100 ML IVPB SCH (17:38)
[2020-05-09] MEDS: Melatonin 3 MG TABLET PO SCH (20:25)
[2020-05-09] MEDS: Mirtazapine 15 MG TABLET PO SCH (20:26)
[2020-05-09] MEDS: *HR* OxyCODONE/APAP 5/325 TABLET PO PRN (20:26)
[2020-05-10] MEDS: Famotidine 20 MG/2 ML VIAL IVP SCH (06:20)
[2020-05-10] MEDS: Tiotropium 10 INH DOSE IH SCH (08:06)
[2020-05-10] MEDS: Sennosides/Docusate Sodium TABLET PO SCH (09:29)
[2020-05-10] MEDS: amLODIPine 5 MG TABLET PO SCH (09:29)
[2020-05-10] MEDS: Aspirin Enteric Coated 81 MG Tablet PO SCH ×2 (09:29)
[2020-05-10] MEDS: *HR* OxyCODONE/APAP 5/325 TABLET PO PRN (09:29)
[2020-05-10] MEDS: traZODone 50 MG TABLET PO SCH ×2 (09:30→15:16)
[2020-05-10] MEDS: Divalproex Sodium 125 MG Sprinkle Capsule (DR) PO SCH (09:30)
[2020-05-10] MEDS: polyethylene glycoL 3350 17 GM POWD.PACK PO SCH (09:30)
[2020-05-10] MEDS: Cyanocobalamin (B-12) 1,000 MCG TABLET PO SCH (09:30)
[2020-05-10] MEDS: Insulin LISPRO 300 UNITS/3 ML VIAL SUBQ SCH ×2 (09:31→11:14)
[2020-05-10 11:11] VITALS: BP 154/86
== END 2020-05-10 16:22 | DRG 480 ==
LOC: 3NENU → SUATTDRO 13:20
PROVIDERS: ADMIT Student in an Organized Health Care Education/Training Program; ATTEND Internal Medicine